=== PATIENT | female | born 1965 | race Caucasian/White ===

== ENCOUNTER 2017-04-30 14:45 | Emergency (ER) | payer OTHER ==
[~2017-04-30] VITALS: Ht 144.8 cm; Wt 49.9 kg
[~2017-04-30 14:45] MED LIST: ANORO ELLIPTA1 EACH INH; ASPIRIN EC81 M1 PO; CALCIUM + VITA1 EAC1 PO; CINNAMON500 M1 PO; CLONAZEPAM0.5 M2 PO; CRESTOR10 M1 PO; HARD NAILS2500 MCG PO; METFORMIN HCL500 M4 PO; PREVACID30 M1 PO; VITAMIN D5000 UNIT PO; ZYRTEC10 M3 PO
--- NOTE | 2017-04-30 15:24 | CT SCAN REPORT ---
EXAMINATION: CT HEAD WITHOUT CONTRAST CLINICAL INFORMATION: Intermittent left-sided weakness. COMPARISON: None. TECHNIQUE: Contiguous axial imaging was performed from the skull base to vertex without intravenous administration of contrast. DLP: 618.65 mGy-cm FINDINGS: There is no evidence of acute intracranial hemorrhage or territorial infarction. No abnormal mass effect or midline shift is seen. Mancia to white matter differentiation is well preserved. No extra-axial fluid collections are identified. The ventricles are normal in size. There are areas of low attenuation in the basal ganglia bilaterally which may be consistent with lacunar infarcts versus prominent perivascular spaces. The osseous structures and soft tissues are normal. The mastoid air cells are well-aerated. There is a retention cyst in the posterior left sphenoid sinus. The other paranasal sinuses appear well-aerated. IMPRESSION: 1. There are no acute bleeds or territorial infarcts. 2. Areas of low attenuation in the basal ganglia bilaterally are consistent with lacunar infarcts versus prominent perivascular spaces.
--- NOTE | 2017-04-30 15:34 | ED GENERAL ADULT ---
History of Present Illness General Chief Complaint: Neuro Symptoms/ Deficit Stated Complaint: SENT BY DR. CARNEY FOR ?TIA'S Source: patient Exam Limitations: no limitations Vital Signs & Intake/Output Vital Signs & Intake/Output Vital Signs Date Time Temp Pulse Resp B/P B/P Pulse O2 O2 Flow FiO2 Mean Ox Delivery Rate 04/30 1730 98.5 84 18 185/85 96 04/30 1629 95 Room Air 04/30 1518 97.3 86 18 133/83 95 Room Air Allergies Coded Allergies: NSAIDS (Non-Steroidal Anti-Inflamma (UNKNOWN 09/12/15) Penicillins (UNKNOWN 09/12/15) azithromycin (RASH 09/12/15) codeine (paralyzed 09/12/15) morphine (UNKNOWN 09/12/15) moxifloxacin (From AVELOX) (UNKNOWN 09/12/15) tramadol (vomit 09/12/15) Reconcile Medications Albuterol Sulfate (Proair Hfa) 90 MCG HFA.AER.AD 2 PUF INH Q4-6 PRN PRN SHORTNESS OF BREATH (Reported) Aspirin (Ecotrin*) 81 MG TABLET.DR 1 TAB PO DAILY HEART (Reported) Biotin (Hard Nails) 2,500 MCG CAPSULE 5,000 MCG PO DAILY SUPPLEMENT (Reported ) Cetirizine HCl (Zyrtec) 10 MG TABLET 1 TAB PO DAILY ALLERGIES (Reported) Cholecalciferol (Vitamin D3) (Vitamin D) 5,000 UNIT TABLET 1 TAB PO DAILY SUPPLEMENT (Reported) Cinnamon Bark (Cinnamon) 500 MG CAPSULE 2,000 MG PO DAILY DIABETES (Reported) Lansoprazole (Prevacid) 30 MG CAPSULE.DR 1 CAP PO DAILY REFLUX (Reported) Metformin HCl (Metformin HCl ER) 500 MG TAB.ER.24H 1 TAB PO DAILY NEEDED DIABETES (Reported) Rosuvastatin Calcium (Crestor) 10 MG TABLET 1 TAB PO EOD CHOLESTEROL ( Reported) Triage Note: PT STATES THAT SHE WAS SENT BY HER PMD FOR CT SCAN DUE TO SHE HAS BEEN GETTING SHORT EPISODES OF L SIDE CP AND THEN L SIDE BODY NUMBNESS THAT LAST FOR ABOUT 45 MINUTES, STATES THAT EPISODES HAVE BEEN INTERMITTANT FOR THE PAST 2 MONTHS, ALSO COMPLAINS THAT SHE GETS A SLIGHT HEADACHE DAILY. DENIES CP/SOB AT TRIAGE Triage Nurses Notes Reviewed? yes Onset: Abrupt Duration: week(s): Timing: recent history HPI: 04/30/17 9:15 PM This is a mati 52-year-old female with a past medical history of diabetes, hyperlipidemia, hypertension, who smokes. She says that over the past several months she was developing left-sided arm paresthesias. She had seen a energy conservation technician, and had labs and outpatient stress test. She was told her heart was okay. She has been having intermittent left sided facial weakness and this is what concerned her. She saw her primary care doctor -Dr. Rhodes, who referred her to the emergency department for concern of TIA. Past History Travel History Traveled to [place] past 21 day No Medical History Any Pertinent Medical History? see below for history Neurological: NONE EENT: NONE Cardiovascular: hyperlipidemia Respiratory: COPD, emphysema Gastrointestinal: NONE Hepatic: NONE Renal: NONE Musculoskeletal: NONE Psychiatric: NONE Endocrine: diabetes Blood Disorders: NONE RIB BENDER/Reproductive: NONE Surgical History Surgical History: non-contributory Psychosocial History What is your primary language Welsh Tobacco Use: Current Daily Use Daily Tobacco Use Amount/Type: => 5 Cigarettes daily ETOH Use: denies use Illicit Drug Use: denies illicit drug use Family History Hx Contributory? No Review of Systems Review of Systems Constitutional: Denies: fever. EENTM: Denies: visual changes. Respiratory: Denies: short of breath. Cardiovascular: Denies: chest pain. GI: Denies: abdominal pain. Genitourinary: Reports: no symptoms. Musculoskeletal: Reports: no symptoms. Skin: Denies: rash. Neurological/Psychological: Reports: see HPI. Hematologic/Endocrine: Reports: no symptoms. Immunologic/Allergic: Reports: no symptoms. Physical Exam Physical Exam General Appearance: well developed/nourished, alert, awake, anxious, mild distress Head: atraumatic, normal appearance Eyes: Bilateral: normal appearance, PERRL, EOMI. Ears, Nose, Throat: normal pharynx, normal ENT inspection Neck: normal inspection, supple Respiratory: normal breath sounds, chest non-tender, no respiratory distress Cardiovascular: regular rate/rhythm Peripheral Pulses: 4+ radial (R), 4+ radial (L) Gastrointestinal: soft, non-tender Back: normal range of motion Extremities: normal range of motion, no edema Neurologic/Psych: no motor/sensory deficits, awake, alert, oriented x 3 Skin: intact, normal color, warm/dry Core Measures ACS in differential dx? No CVA/TIA Diagnosis: No Sepsis Present: No Sepsis Focused Exam Completed? No Progress Differential Diagnoses I considered the following diagnoses in my evaluation of the patient: Plan of Care: Orders Procedure Date/time Status TROPONIN LEVEL 04/30 144 Complete PARTIAL THROMBOPLASTIN TIME 04/30 1448 Complete PROTHROMBIN TIME 04/30 1448 Complete COMPREHENSIVE METABOLIC PANEL 04/30 1448 Complete CBC WITHOUT DIFFERENTIAL 04/30 144 Complete EKG 04/30 144 Active Laboratory Tests 04/30/17 1542: Anion Gap 13, Estimated GFR > 60, BUN/Creatinine Ratio 21.4, Glucose 199 H, Calcium 9.9, Total Bilirubin 0.6, AST 12 L, ALT 18, Alkaline Phosphatase 34, Troponin I < 0.01, Total Protein 7.3, Albumin 4.4, Globulin 2.9, Albumin/ Globulin Ratio 1.5, PT 11.6, INR 1.06, APTT 31, CBC w Diff NO MAN DIFF REQ, RBC 4.54, MCV 93.2, MCH 31.5 H, MCHC 33.8, RDW 14.2, MPV 9.8, Gran % 64.5, Lymphocytes % 29.6, Monocytes % 4.3, Eosinophils % 1.1, Basophils % 0.5, Absolute Granulocytes 6.7 H, Absolute Lymphocytes 3.1, Absolute Monocytes 0.4, Absolute Eosinophils 0.1, Absolute Basophils 0 Initial ED EKG: NSR, nonspecific ST T wave chg Departure Departure Disposition: HOME OR SELF CARE Condition: Stable Clinical Impression Primary Impression: Paresthesia Referrals: King Johnson MD (PCP/Family) Departure Forms: Customer Survey General Discharge Information Comments PATIENT: CORNELIA DOSS PRESENT AGE: 52 PATIENT ACCOUNT NO: [id number] : 65 LOCATION: [facility] ORDERING PHYSICIAN: Marina Lee MD SERVICE DATE: 04/30/17 EXAM TYPE: US - [id number] DOPPLER EXAMINATION: DUPLEX BILATERAL CAROTID ULTRASOUND CLINICAL INFORMATION: TIA with left-sided weakness COMPARISON: None. TECHNIQUE: Duplex bilateral carotid US was performed using real-time ultrasound and Doppler techniques (integrating B-mode 2D vascular images, Doppler spectral analysis and color flow Doppler imaging). These techniques were utilized to interrogate the extracranial carotid and vertebral arteries bilaterally. The degree of stenosis is based off criteria similar to NASCET. FINDINGS: 1. On the right: Plaque is present at the carotid bifurcation but velocity measurements are normal and do not suggest a stenosis of greater than 50% diameter reduction in the right ICA. The right ECA demonstrates a mild stenosis with peak systolic velocity of under 200 cm/s. The vertebral artery is patent demonstrating antegrade flow. 2. On the left: Plaque is present at the carotid bifurcation but velocity measurements are normal and do not suggest a stenosis of greater than 50% diameter reduction in the left ICA. The left external carotid artery shows no significant stenosis. The vertebral artery is patent demonstrating antegrade flow. IMPRESSION: Plaque is present in the internal carotid arteries but velocity measurements are normal and there is no evidence to suggest a hemodynamically significant stenosis of greater than 50% diameter reduction. DICTATED BY: Connor Reis MD DATE/TIME DICTATED:04/30/171636 BILLING DEPARTMENT SUPERVISOR:CANDELARIO DATE/TIME TRANSCRIBED:04/30/171636 CONFIDENTIAL, DO NOT COPY WITHOUT APPROPRIATE AUTHORIZATION. <Electronically signed in Other Vendor System> SIGNED BY: Connor Reis MD 04/30/17 1641 PATIENT: CORNELIA DOSS PRESENT AGE: 52 PATIENT ACCOUNT NO: [id number] : 65 LOCATION: [facility] ORDERING PHYSICIAN: Marina Lee MD SERVICE DATE: 04/30/17 EXAM TYPE: CAT - CT HEAD WO IV CONTRAST EXAMINATION: CT HEAD WITHOUT CONTRAST CLINICAL INFORMATION: Intermittent left-sided weakness. COMPARISON: None. TECHNIQUE: Contiguous axial imaging was performed from the skull base to vertex without intravenous administration of contrast. DLP: 618.65 mGy-cm FINDINGS: There is no evidence of acute intracranial hemorrhage or territorial infarction. No abnormal mass effect or midline shift is seen. Mancia to white matter differentiation is well preserved. No extra-axial fluid collections are identified. The ventricles are normal in size. There are areas of low attenuation in the basal ganglia bilaterally which may be consistent with lacunar infarcts versus prominent perivascular spaces. The osseous structures and soft tissues are normal. The mastoid air cells are well-aerated. There is a retention cyst in the posterior left sphenoid sinus. The other paranasal sinuses appear well-aerated. IMPRESSION: 1. There are no acute bleeds or territorial infarcts. 2. Areas of low attenuation in the basal ganglia bilaterally are consistent with lacunar infarcts versus prominent perivascular spaces. DICTATED BY: Armin Hartman MD DATE/TIME DICTATED:04/30/171516 BILLING DEPARTMENT SUPERVISOR:CANDELARIO DATE/TIME TRANSCRIBED:04/30/171516 CONFIDENTIAL, DO NOT COPY WITHOUT APPROPRIATE AUTHORIZATION. <Electronically signed in Other Vendor System> SIGNED BY: Armin Hartman MD 04/30/17 1524 The patient's EKG was unremarkable. Troponin was negative. Her symptoms have been ongoing and intermittent for over [address] scan results and ultrasound results were reviewed with the patient. She declined inpatient observation. Shared decision-making was utilized in her care. I spoke with the on-call neurologist Dr. Eldridge, who felt that outpatient workup at this point was reasonable as she has had the symptoms intermittently for months. I implored on the patient to please stop smoking. She was told to continue her aspirin and statin. She will follow-up with the neurologist this week. Return to the emergency department should her symptoms return. The patient also has a history of severe cervical disc disease. Radiculopathy may be the cause of her symptoms. She was instructed to discuss obtaining an MRI both of her brain and her cervical spine for further workup of her care. Her neurological exam in the emergency department was normal. Critical Care Note Critical Care Note Critical Care Time: non-applicable
[2017-04-30 16:03] LABS: PT 11.6 SEC (9.4-12.5); PTT 31 SEC (25-37)
[2017-04-30 16:04] LABS: ABSOLUTE BASOPHIL COUNT 0 /CUMM (0.0-0.2); ABSOLUTE EOSINOPHIL COUNT 0.1 /CUMM (0.0-0.7); ABSOLUTE GRANULOCYTE CT 6.7 /CUMM (1.4-6.5); ABSOLUTE LYMPH COUNT 3.1 /CUMM (1.2-3.4); ABSOLUTE MONOCYTE COUNT 0.4 /CUMM (0.10-0.60); BASOPHIL % 0.5 % (0.0-2.0); EOSINOPHIL % 1.1 % (0-5); GRANULOCYTE % 64.5 % (42.2-75.2); HEMATOCRIT 42.3 % (37-47); MEAN CORPUSCULAR HGB 31.5 PG (27.0-31.0); MEAN CORPUSCULAR HGB CONC 33.8 G/DL (33.0-37.0); MEAN CORPUSCULAR VOLUME 93.2 FL (81.0-99.0); MEAN PLATELET VOLUME 9.8 FL (7.4-10.4); PLATELET COUNT 251 /CUMM (130-400); RBC DISTRIBUTION WIDTH 14.2 % (11.5-14.5); RED BLOOD CELL CT 4.54 /CUMM (4.20-5.40); WHITE BLOOD CELL COUNT 10.4 /CUMM (4.8-10.8)
--- NOTE | 2017-04-30 16:41 | ULTRASOUND REPORT ---
EXAMINATION: DUPLEX BILATERAL CAROTID ULTRASOUND CLINICAL INFORMATION: TIA with left-sided weakness COMPARISON: None. TECHNIQUE: Duplex bilateral carotid US was performed using real-time ultrasound and Doppler techniques (integrating B-mode 2D vascular images, Doppler spectral analysis and color flow Doppler imaging). These techniques were utilized to interrogate the extracranial carotid and vertebral arteries bilaterally. The degree of stenosis is based off criteria similar to NASCET. FINDINGS: 1. On the right: Plaque is present at the carotid bifurcation but velocity measurements are normal and do not suggest a stenosis of greater than 50% diameter reduction in the right ICA. The right ECA demonstrates a mild stenosis with peak systolic velocity of under 200 cm/s. The vertebral artery is patent demonstrating antegrade flow. 2. On the left: Plaque is present at the carotid bifurcation but velocity measurements are normal and do not suggest a stenosis of greater than 50% diameter reduction in the left ICA. The left external carotid artery shows no significant stenosis. The vertebral artery is patent demonstrating antegrade flow. IMPRESSION: Plaque is present in the internal carotid arteries but velocity measurements are normal and there is no evidence to suggest a hemodynamically significant stenosis of greater than 50% diameter reduction.
[2017-04-30 17:30] VITALS: BP 185/85
[2017-04-30] MEDS ORDERED: VITAMIN D31000 UNI1 PO (17:59)
[2017-04-30] MEDS ORDERED: PROAIR HFA8.5 GM INH (18:01)
== END 2017-04-30 18:34 ==
LOC: ERH 14:45
PROVIDERS: Emergency Medicine
DX: R20.2 Paresthesia of skin (principal)
CPT/HCPCS: 93005; 93010